=== PATIENT | male | born 1970 | race Hispanic/Latino ===

== ENCOUNTER 2018-04-10 11:08 | Emergency (ER) | payer OTHER ==
[2018-04-10] MEDS ORDERED: NACL 0.9% 1000 ML 1,000 ML IV ONE (12:04)
[2018-04-10] MEDS ORDERED: NACL 0.9% 1000 ML 1,000 ML ONE (12:06)
--- NOTE | 2018-04-10 12:09 | Emergency Department Report ---
ED General Adult HPI - General Chief complaint: Fall Stated complaint: ELECTROCUTED FROM WORK Time Seen by Provider: 04/10/18 12:01 Source: patient Mode of arrival: Ambulatory Limitations: No Limitations - History of Present Illness Initial comments: Patient is 47 years old male with history of hypertension. Patient presented to the ER complaining or left forearm after he was electrocuted while on a ladder about 4 feet up. Patient stated that he passed out for few seconds and he was fine himself landed on the left side is complaining of left-sided pain. Patient denying any chest pain, palpitation, shortness of breath, nausea or vomiting. No weakness numbness or tingling sensation. Initial EKG showed normal sinus rhythm with a heart rate of 67 with no arrhythmia. - Related Data Previous Rx's Medication Instructions Recorded Last Taken Type Metaxalone [Skelaxin] 800 mg PO TID #20 tablet 04/10/18 Unknown Rx Ondansetron [Zofran Odt] 4 mg PO Q8HR PRN #14 tab.rapdis 04/10/18 Unknown Rx traMADol [Ultram 50 MG tab] 50 mg PO Q4HR PRN #14 tablet 04/10/18 Unknown Rx Allergies Allergy/AdvReac Type Severity Reaction Status Date / Time No Known Allergies Allergy Unverified 04/10/18 11:34 ED Review of Systems ROS: Stated complaint: ELECTROCUTED FROM WORK Other details as noted in HPI Comment: All other systems reviewed and negative Constitutional: denies: chills, fever Respiratory: denies: cough Cardiovascular: denies: chest pain, palpitations Gastrointestinal: denies: abdominal pain, nausea, vomiting, diarrhea, constipation, hematemesis, hematochezia Skin: denies: rash, lesions Neurological: denies: headache, weakness, numbness, paresthesias, confusion, abnormal gait ED Past Medical Hx - Past Medical History Previous Medical History?: Yes Hx Hypertension: Yes Additional medical history: anxiety - Surgical History Past Surgical History?: No - Social History Smoking Status: Never Smoker Substance Use Type: None - Medications Home Medications: Home Medications Medication Instructions Recorded Confirmed Last Taken Type Metaxalone [Skelaxin] 800 mg PO TID #20 tablet 04/10/18 Unknown Rx Ondansetron [Zofran Odt] 4 mg PO Q8HR PRN #14 tab.rapdis 04/10/18 Unknown Rx traMADol [Ultram 50 MG tab] 50 mg PO Q4HR PRN #14 tablet 04/10/18 Unknown Rx ED Physical Exam - General Limitations: No Limitations General appearance: alert, in no apparent distress, anxious - Head Head exam: Present: atraumatic, normocephalic, normal inspection - Eye Eye exam: Present: normal appearance, PERRL - ENT ENT exam: Present: normal exam, normal orophraynx - Neck Neck exam: Present: normal inspection, full ROM. Absent: tenderness, meningismus, lymphadenopathy, thyromegaly - Respiratory Respiratory exam: Present: normal lung sounds bilaterally. Absent: respiratory distress, wheezes, rales, rhonchi, chest wall tenderness, accessory muscle use, decreased breath sounds, prolonged expiratory - Cardiovascular Cardiovascular Exam: Present: regular rate, normal rhythm, normal heart sounds - GI/Abdominal GI/Abdominal exam: Present: soft, normal bowel sounds. Absent: distended, tenderness, guarding, rebound, rigid, organomegaly, mass, bruit, pulsatile mass , hernia - Extremities Exam Extremities exam: Present: normal inspection, full ROM, normal capillary refill - Back Exam Back exam: Present: normal inspection, full ROM. Absent: tenderness, CVA tenderness (R), CVA tenderness (L), muscle spasm, paraspinal tenderness, vertebral tenderness, rash noted - Neurological Exam Neurological exam: Present: alert, oriented X3, CN II-XII intact, normal gait, reflexes normal - Skin Skin exam: Present: warm, intact, normal color ED Course Vital Signs 04/10/18 04/10/18 11:18 13:25 Temperature 97.6 F Pulse Rate 72 Respiratory 18 20 Rate Blood Pressure 143/98 O2 Sat by Pulse 99 Oximetry ED Medical Decision Making - Lab Data Result diagrams: 04/10/18 12:04 04/10/18 12:11 - EKG Data -: EKG Interpreted by Ia EKG shows normal: sinus rhythm Rate: normal - EKG Data Interpretation: no acute changes - Radiology Data Radiology results: report reviewed Referring Physician: ZEE LONDON Patient Name: KAILA HUTCHINS Date of : 1970 Sex: Male Report Date: 2018-04-10 Report Status: Finalized Findings [address] [place] [address] XRay Report Signed Patient: KAILA HUTCHINS MR#: [id number] : 1970 Acct:[id number] Age/Sex: 47 / M ADM Date: 04/10/18 Loc: ED Attending Dr: Ordering Physician: ZEE LONDON Date of Service: 04/10/18 Procedure(s): XR hip 2-3V LT Accession Number(s): [id number] cc: ZEE LONDNO Fluoro Time In Minutes: LEFT HIP, 2 views: History: Left hip pain, injury The bony architecture is intact without evidence of fracture or dislocation. No significant soft tissue abnormality is seen. IMPRESSION: Left hip within normal limits. Transcribed By: TTR Dictated By: STEVE CANAS JR, MD Electronically Authenticated By: STEVE CANAS JR, MD Signed Date/Time: 04/10/181443 Referring Physician: ZEE LONDON Patient Name: KAILA HUTCHINS Date of : 1970 Sex: Male Report Date: 2018-04-10 Report Status: Finalized Findings [facility] [address] [place] [address] XRay Report Signed Patient: KAILA HUTCHINS MR#: [id number] : 1970 Acct:[id number] Age/Sex: 47 / M ADM Date: 04/10/18 Loc: ED Attending Dr: Ordering Physician: ZEE LONDON Date of Service: 04/10/18 Procedure(s): XR chest 1V ap Accession Number(s): [id number] cc: ZEE LONDON Fluoro Time In Minutes: AP CHEST: HISTORY: chest pain AP view of the chest demonstrates a normal mediastinal and cardiac contour with clear lungs and normal bony and soft tissue structures. IMPRESSION: Unremarkable AP chest. Transcribed By: TTR Dictated By: STEVE CANAS JR, MD Electronically Authenticated By: STEVE CANAS JR, MD Signed Date/Time: 04/10/18 144 DD/ TD/TT: 04/10/18 1444 DD/ 43 TD/TT: 04/10/181443 Referring Physician: ZEE LONDON Patient Name: KAILA HUTCHINS Date of : 1970 Sex: Male Report Date: 2018-04-10 Report Status: Finalized Findings [facility] [address] [id number] Cat Scan Report Signed Patient: KAILA HUTCHINS MR#: [id number] : 1970 Acct:[id number] Age/Sex: 47 / M ADM Date: 04/10/18 Loc: ED Attending Dr: Ordering Physician: ZEE LONDON Date of Service: 04/10/18 Procedure(s): CT head/brain wo con Accession Number(s): [id number] cc: ZEE LONDON CT HEAD WITHOUT CONTRAST: HISTORY: Fall with loss of consciousness. TECHNIQUE: Sequential 2.5mm CT images. COMPARISON: none. FINDINGS: Cerebral Parenchyma: Within normal limits. Cerebellum: Within normal limits. Brainstem: Within normal limits. Ventricles: Normal. Sella: Normal. Extra-axial spaces: Normal. Basal Cisterns: Normal. Intracranial Hemorrhage: None. Midline Shift: None. Calvarium: Normal. Sinuses: Normal. Mastoid Air Cells: Normal. Visualized Orbits: Normal. IMPRESSION: Cranial CT scan within normal limits. Transcribed By: TTR Dictated By: STEVE CANAS JR, MD Electronically Authenticated By: STEVE CANAS JR, MD Signed Date/Time: 04/10/18 132 DD/ 132 TD/TT: 04/10/181319 - Medical Decision Making Patient stated that he is feeling much better. Patient denying any chest pain or arrhythmia. I reviewed with him his CT brain, chest x-ray and hip x-ray was no acute finding. Advised patient to follow-up with his primary care physician and to return to the ER if his symptoms came back. Critical care attestation.: If time is entered above; I have spent that time in minutes in the direct care of this critically ill patient, excluding procedure time. ED Disposition Clinical Impression: Electrocution caused by electroshock gun, Head injury, Chest wall contusion Disposition: - TO HOME OR SELFCARE Is pt being admited?: No Condition: Stable Instructions: Minor Head Injury (ED), Contusion in Adults (ED) Prescriptions: Metaxalone [Skelaxin] 800 mg PO TID #20 tablet Ondansetron [Zofran Odt] 4 mg PO Q8HR PRN #14 tab.rapdis PRN Reason: Nausea And Vomiting traMADol [Ultram 50 MG tab] 50 mg PO Q4HR PRN #14 tablet PRN Reason: Pain Referrals: PRIMARY CARE, [Primary Care Provider] - 3-5 Days Forms: Work/School Release Form(ED)
[2018-04-10 12:35] LABS: Basophils % (Auto) 0.5 % (0.0-1.8); Eosinophils % (Auto) 0.2 % (0.0-4.3); Hematocrit 46.4 % (35.5-45.6); Hemoglobin 16.7 gm/dl (11.8-15.2); Lymphocytes % (Auto) 13.6 % (13.4-35.0); Mean Corpuscular HGB Conc 36 % (32-34); Mean Corpuscular Hemoglobin 39 pg (28-32); Mean Corpuscular Volume 109 fl (84-94); Monocytes % (Auto) 7.3 % (0.0-7.3); Platelet Count 170 K/mm3 (140-440); Red Blood Count 4.27 M/mm3 (3.65-5.03); Red Cell Distribution Width 15.5 % (13.2-15.2)
[2018-04-10 12:36] LABS: Lymphocytes # (Auto) 1.2 K/mm3 (1.2-5.4); Monocytes # (Auto) 0.6 K/mm3 (0.0-0.8)
[2018-04-10 12:46] LABS: Alanine Aminotransferase 53 units/L (7-56); Albumin 4.4 g/dL (3.9-5); BUN/Creatinine Ratio 10; Blood Urea Nitrogen 7 mg/dL (9-20); Calcium 9.1 mg/dL (8.4-10.2); Hemolysis Index 19
[2018-04-10] MEDS ORDERED: MORPHINE IV ONE (13:06)
[2018-04-10] MEDS ORDERED: ZOFRAN IV ONE (13:07)
--- NOTE | 2018-04-10 13:21 | Cat Scan Report ---
CT HEAD WITHOUT CONTRAST: HISTORY: Fall with loss of consciousness. TECHNIQUE: Sequential 2.5mm CT images. COMPARISON: none. FINDINGS: Cerebral Parenchyma: Within normal limits. Cerebellum: Within normal limits. Brainstem: Within normal limits. Ventricles: Normal. Sella: Normal. Extra-axial spaces: Normal. Basal Cisterns: Normal. Intracranial Hemorrhage: None. Midline Shift: None. Calvarium: Normal. Sinuses: Normal. Mastoid Air Cells: Normal. Visualized Orbits: Normal. IMPRESSION: Cranial CT scan within normal limits.
--- NOTE | 2018-04-10 14:44 | XRay Report ---
LEFT HIP, 2 views: History: Left hip pain, injury The bony architecture is intact without evidence of fracture or dislocation. No significant soft tissue abnormality is seen. IMPRESSION: Left hip within normal limits.
--- NOTE | 2018-04-10 14:45 | XRay Report ---
AP CHEST: HISTORY: chest pain AP view of the chest demonstrates a normal mediastinal and cardiac contour with clear lungs and normal bony and soft tissue structures. IMPRESSION: Unremarkable AP chest.
[2018-04-10 16:26] VITALS: BP 119/78
== END 2018-04-10 16:02 | disposition home or self-care (01) ==
LOC: ED 11:08
DX: S20.212A Contusion of left front wall of thorax, initial encounter (principal); S09.90XA Unspecified injury of head, initial encounter; M79.632 Pain in left forearm; I10 Essential (primary) hypertension; W86.8XXA Exposure to other electric current, initial encounter; Y93.89 Activity, other specified; Y92.89 Other specified places as the place of occurrence of the external cause; Y99.8 Other external cause status
CPT/HCPCS: 36415; 70450; 71045; 73502; 80053; 82550; 84484; 85025; 93005; 93010; 96374; 96375; 99284; J2270; J2405; J7030; 96361